=== PATIENT | male | born 1995 | race Caucasian/White ===

== ENCOUNTER 2018-06-04 21:10 | Emergency (ER) | payer OTHER ==
[2018-06-04] MEDS: diphenhydrAMINE 50 MG CAP PO (22:39)
[2018-06-04] MEDS: predniSONE 20 MG TAB PO (22:39)
[2018-06-04] MEDS: CEPHALEXIN 500 MG CAP PO (22:40)
== END 2018-06-04 23:07 | disposition home or self-care (01) ==
LOC: M ED 21:10
DX: H05.221 Edema of right orbit (principal); L03.211 Cellulitis of face; T63.441A Toxic effect of venom of bees, accidental (unintentional), initial encounter; Y92.099 Unspecified place in other non-institutional residence as the place of occurrence of the external cause; Y93.9 Activity, unspecified; Z72.0 Tobacco use; Z79.899 Other long term (current) drug therapy
CPT/HCPCS: 99283

== ENCOUNTER → 2019-06-10 | Outpatient (REF) ==
[~2019-06-10] MED LIST: BENA25CA4 PO; DIPH25CA32 PO; KEFL500C17 PO; REFR0.5D8 OP
== END ==
LOC: M LAB 11:06